=== PATIENT | male | born 1960 | race Caucasian/White ===

== ENCOUNTER 2019-10-25 08:23 | Inpatient (IN) ==
[2019-10-25 09:07] LABS: Basophils % 0.2 % (0.0-0.8); Eosinophils % 0.1 % (0.00-10.9); Hematocrit 44.2 VOL% (42.0-52.0); Hemoglobin 15.1 GM/DL (14.0-18.0); Immature Granulocytes % 0.9 %; Immature Granulocytes Absolute 0.16 #; Lymphocytes # 1.2 10*3/uL (1.4-4.0); Lymphocytes % 6.5 % (21.2-54.2); Mean Corpuscular HGB Conc 34.2 GM/DL (32-36); Mean Corpuscular Volume 88.6 FL (87-102); Monocytes % 7.5 % (1.7-12.7); Neutrophils % 84.8 % (38.7-73.9); Platelet Count 211 T/CUMM (130-400); Red Blood Count 4.99 MC/CUMM (3.8-5.5); Red Cell Distribution Width 12.7 % (9.3-17.3); White Blood Count 18.3 T/CUMM (4-12)
[2019-10-25 09:19] LABS: Calcium 9.1 MG/DL (8.5-10.1); Osmolality,Calculated 266.5 MOS/KG (273-304); Uric Acid 3.5 MG/DL (3.5-7.2)
[2019-10-25 10:26] LABS: Glucose,Synovial Fluid 2 MG/DL
[2019-10-25 11:07] LABS: Lymphocytes,Synovial Fluid 12 %; Neutrophils,Synovial Fluid 85 %
[2019-10-25] MEDS ORDERED: VANCOMYCIN INJ 1,500 MG in SODIUM CHLORIDE 0.9% 500 ML IV STA (11:55)
[2019-10-25] MEDS ORDERED: DEXTROSE 10% 250 ML BAG IV PRN (12:01)
[2019-10-25] MEDS ORDERED: GLUCAGON 1 MG VIAL IM PRN (12:01)
[2019-10-25] MEDS ORDERED: ONDANSETRON 4 MG/2 ML VIAL IV PRN (12:01)
[2019-10-25] MEDS ORDERED: POTASSIUM CHLORIDE 20 MEQ TABLET PO ONE (12:03)
[2019-10-25] MEDS ORDERED: VANCOMYCIN 1,000 MG VIAL ONE (12:30)
[2019-10-25] MEDS ORDERED: VANCOMYCIN INJ 500 MG in SODIUM CHLORIDE 0.9% 100 ML IV STA (12:46)
[2019-10-25] MEDS ORDERED: VANCOMYCIN INJ 1,000 MG in SODIUM CHLORIDE 0.9% 250 ML IV STA (13:39)
[2019-10-26 06:10] LABS: Basophils # 0.1 10*3/uL (0.0-0.2); Basophils % 0.4 % (0.0-0.8); Eosinophils # 0.1 10*3/uL (0.0-0.87); Eosinophils % 0.6 % (0.00-10.9); Hematocrit 43.9 VOL% (42.0-52.0); Hemoglobin 14.6 GM/DL (14.0-18.0); Immature Granulocytes % 0.7 %; Lymphocytes # 1.4 10*3/uL (1.4-4.0); Mean Corpuscular HGB Conc 33.3 GM/DL (32-36); Mean Corpuscular Volume 89.6 FL (87-102); Mean Platelet Volume 11.7 FL (9.6-12.0); Monocytes % 11.1 % (1.7-12.7); Neutrophils % 77.2 % (38.7-73.9); Platelet Count 223 T/CUMM (130-400); White Blood Count 13.9 T/CUMM (4-12)
[2019-10-26 06:44] LABS: Albumin 3.2 G/DL (3.4-5.0); Bilirubin,Total 0.8 MG/DL (0.2-1.0); Calcium 9.3 MG/DL (8.5-10.1); Osmolality,Calculated 270.1 MOS/KG (273-304); Thyroid Stimulating Hormone 2.24 uIU/ml (0.358-3.74); Total Protein 7.4 G/DL (6.4-8.3)
[2019-10-26] MEDS ORDERED: MAGNESIUM SULF RIDER 2 GM in PREMIX 1 EACH IV PRN (07:05)
[2019-10-26] MEDS ORDERED: MAGNESIUM SULF RIDER 4 GM in PREMIX 1 EACH IV PRN (07:05)
[2019-10-26] MEDS: VANCOMYCIN INJ 1,250 MG in SODIUM CHLORIDE 0.9% 250 ML IV SCH (08:51)
[2019-10-26] MEDS: PANTOPRAZOLE 40 MG TABLET PO SCH (08:51)
[2019-10-26] MEDS ORDERED: diphenhydrAMINE 50 MG/1 ML VIAL IV PRN (09:18)
[2019-10-26] MEDS ORDERED: PROMETHAZINE INJ 25 MG in SODIUM CHLORIDE 0.9% 50 ML IV PRN (09:18)
[2019-10-26] MEDS ORDERED: MEPERIDINE 25 MG/1 ML VIAL IV PRN (09:18)
[2019-10-26] MEDS ORDERED: ONDANSETRON 4 MG/2 ML VIAL IV PRN (09:18)
[2019-10-26] MEDS ORDERED: HYDROmorphone 2 MG/1 ML VIAL IV PRN (09:18)
[2019-10-26] MEDS: KETOROLAC 15 MG/1 ML VIAL IV SCH ×3 (11:20→23:52)
[2019-10-26] MEDS ORDERED: fentaNYL 100 MCG/2 ML VIAL ONE ×2 (13:28)
[2019-10-26] MEDS ORDERED: propofoL 200 MG/20 ML VIAL IV ONE (13:28)
[2019-10-26] MEDS ORDERED: ONDANSETRON 4 MG/2 ML VIAL ONE (13:28)
[2019-10-26] MEDS ORDERED: LIDOCAINE 2% 5 ML VIAL ONE (13:28)
[2019-10-26] MEDS ORDERED: SEVOFLURANE 1 UNIT/15 MINUTE INH ONE (13:28)
[2019-10-26] MEDS ORDERED: SUCCINYLCHOLINE 200 MG/10 ML VIAL ONE (13:29)
[2019-10-26] MEDS ORDERED: MIDAZOLAM 2 MG/2 ML VIAL ONE (13:29)
[2019-10-26] MEDS ORDERED: ACETAMINOPHEN 1,000 MG/100 ML VIAL IV ONE (13:29)
[2019-10-26] MEDS ORDERED: PHENYLEPHRINE 1 MG/10 ML SYRINGE IV ONE (13:29)
[2019-10-26] MEDS ORDERED: ROCURONIUM 100 MG/10 ML VIAL IV ONE (13:29)
[2019-10-27] MEDS: KETOROLAC 15 MG/1 ML VIAL IV SCH ×4 (05:29→23:43)
[2019-10-27 06:50] LABS: Basophils % 0.3 % (0.0-0.8); Eosinophils # 0.1 10*3/uL (0.0-0.87); Eosinophils % 1.1 % (0.00-10.9); Hematocrit 41.3 VOL% (42.0-52.0); Hemoglobin 14.1 GM/DL (14.0-18.0); Immature Granulocytes % 0.8 %; Immature Granulocytes Absolute 0.09 #; Lymphocytes # 1.3 10*3/uL (1.4-4.0); Lymphocytes % 11.8 % (21.2-54.2); Mean Corpuscular HGB Conc 34.1 GM/DL (32-36); Mean Corpuscular Volume 89.8 FL (87-102); Mean Platelet Volume 11.4 FL (9.6-12.0); Monocytes % 10.8 % (1.7-12.7); Neutrophils % 75.2 % (38.7-73.9); Platelet Count 231 T/CUMM (130-400); Red Cell Distribution Width 12.7 % (9.3-17.3); White Blood Count 11.1 T/CUMM (4-12)
[2019-10-27 07:13] LABS: Albumin 2.6 G/DL (3.4-5.0); Bilirubin,Total 1.8 MG/DL (0.2-1.0); Calcium 8.6 MG/DL (8.5-10.1); Osmolality,Calculated 270.2 MOS/KG (273-304); Total Protein 6.9 G/DL (6.4-8.3)
[2019-10-27] MEDS: PANTOPRAZOLE 40 MG TABLET PO SCH (09:09)
[2019-10-27] MEDS: ENOXAPARIN 40 MG/0.4 ML SYRINGE SUBCUT SCH (09:10)
[2019-10-27] MEDS: VANCOMYCIN INJ 1,250 MG in SODIUM CHLORIDE 0.9% 250 ML IV SCH (09:10)
[2019-10-27] MEDS ORDERED: cefTRIAXone 1,000 MG in SODIUM CHLORIDE 0.9% 100 ML IV SCH (12:00)
[2019-10-27] MEDS: cefTRIAXone 2,000 MG in SYRINGE 1 EACH IV SCH (12:08)
[2019-10-27] MEDS ORDERED: DOCUSATE SODIUM 100 MG CAPSULE PO ONE (18:21)
[2019-10-27] MEDS ORDERED: POLYETHYLENE GLYCOL POWDER 255 GM BOTTLE PO ONE (18:21)
[2019-10-27] MEDS ORDERED: POLYETHYLENE GLYCOL POWDER 17 GM PACK PO ONE (18:27)
[2019-10-28] MEDS: KETOROLAC 15 MG/1 ML VIAL IV SCH (05:21)
[2019-10-28 05:24] LABS: Calcium 9.3 MG/DL (8.5-10.1); Osmolality,Calculated 277.8 MOS/KG (273-304)
[2019-10-28] MEDS: ENOXAPARIN 40 MG/0.4 ML SYRINGE SUBCUT SCH (08:58)
[2019-10-28] MEDS: VANCOMYCIN INJ 1,250 MG in SODIUM CHLORIDE 0.9% 250 ML IV SCH (08:59)
[2019-10-28] MEDS: PANTOPRAZOLE 40 MG TABLET PO SCH (08:59)
[2019-10-28] MEDS ORDERED: POLYETHYLENE GLYCOL POWDER 17 GM PACK PO SCH (09:00)
[2019-10-28] MEDS ORDERED: DOCUSATE SODIUM 100 MG CAPSULE PO SCH (09:00)
[2019-10-28 11:33] VITALS: BP 139/85
[2019-10-28] MEDS: cefTRIAXone 2,000 MG in SYRINGE 1 EACH IV SCH (12:28)
== END 2019-10-28 13:10 | disposition home or self-care (01) | DRG 501 ==
LOC: N.ED 08:23 → N.EDINP 12:01 → INTOOBSV 12:01 → SUATTDRO 12:01 → N.3E 15:35
PROVIDERS: ADMIT Family Medicine; ATTEND Internal Medicine